=== PATIENT | male | born 1945 | race Caucasian/White ===

== ENCOUNTER 2018-01-14 09:58 | Emergency (ER) | payer MEDICARE, OTHER ==
[~2018-01-14] VITALS: Ht 180.3 cm; Wt 81.8 kg
[2018-01-14] MEDS ORDERED: CEPHALEXIN500 M1 PO (11:13)
[2018-01-14 11:26] VITALS: BP 157/85
== END 2018-01-14 11:35 | disposition home or self-care (01) ==
LOC: ED 09:58
DX: S01.01XA Laceration without foreign body of scalp, initial encounter (principal); W10.9XXA Fall (on) (from) unspecified stairs and steps, initial encounter; Y92.008 Other place in unspecified non-institutional (private) residence as the place of occurrence of the external cause; Z23 Encounter for immunization
CPT/HCPCS: 90715

== ENCOUNTER 2018-01-23 12:00 | Emergency (ER) | payer MEDICARE, OTHER ==
[~2018-01-23 12:00] MED LIST: CEPHALEXIN500 M1 PO
[2018-01-23 12:30] VITALS: BP 163/96
== END 2018-01-23 12:30 | disposition home or self-care (01) ==
LOC: ED 12:00
DX: Z48.02 Encounter for removal of sutures (principal)